=== PATIENT | female | born 1960 | race Caucasian/White ===

== ENCOUNTER → 2018-09-23 14:37 | Outpatient (CLI) | payer OTHER, SELFPAY ==
--- NOTE | 2018-09-23 14:39 | RAD_ITS ---
STUDY: X-RAY - RIGHT HAND REASON FOR EXAM: Female, 58 years old. Pain of the first digit TECHNIQUE: 3 view(s) of the hand. COMPARISON: None. FINDINGS: Normal radiocarpal articulation. Normal distal radioulnar joint. Normal visualized carpal bones. Normal carpal articulations Normal carpometacarpal articulation of the thumb. Normal second through fifth carpometacarpal joints. Normal metacarpi. Normal metacarpophalangeal joint of the thumb. Normal interphalangeal joint of the thumb. Normal proximal and distal phalanges of the thumb. Normal metacarpophalangeal joints of the second through fifth fingers. Normal proximal and distal interphalangeal joints of the second through fifth fingers. Normal phalanges of the second through fifth fingers. The soft tissue structures are unremarkable. RAD/Hand Min 3 Views IMPRESSION: Normal x-ray examination of the hand. Electronically Signed: Robbie Wolf MD at 18:44 EST , Service support ,
== END ==
PROVIDERS: Family Provider Student in an Organized Health Care Education/Training Program; PCP Student in an Organized Health Care Education/Training Program; Referring Provider Orthopaedic Surgery; Visit Provider Orthopaedic Surgery
DX: M79.644 Pain in right finger(s) (principal)
CPT/HCPCS: 73130

== ENCOUNTER 2018-10-08 23:46 | Emergency (ER) | payer OTHER, SELFPAY ==
[2018-10-08 23:47] VITALS: BP 139/86; PULSE 79; RESP 20; TEMP 36.7; O2SAT 100; BMI 23.1
--- NOTE | 2018-10-08 23:53 | ED.RN ---
CALLED FOR EKG PER RN REQUEST, PULLED OLD EKGS FOR
--- NOTE | 2018-10-09 | EKG12_ITS ---
Test Reason : PALPITATIONS Blood Pressure : / mmHG Vent. Rate : 077 BPM Atrial Rate : 077 BPM P-R Int : 138 ms QRS Dur : 088 ms QT Int : 406 ms P-R-T Axes : 079 073 045 degrees QTc Int : 459 ms Normal sinus rhythm Normal ECG Confirmed by MIGUEL TREJO, SOFIE ([id number]), social media editor SLIME ARMENTA ([id number]) on 10/13/2018 11:35:18 AM Referred By: BEBETO Confirmed By:SOFIE RIVERA MD
--- NOTE | 2018-10-09 00:25 | RAD_ITS ---
PT STATES SHE FELT LIKE HER HEART RATE WAS LOW AND THEN IT WAS RACING,HER LIPS WERE NUMB AND L ARM CRAMPING EXAM: XR Chest 2 Views: COMPARISON: None FINDINGS: EKG leads in place. Normal heart size. Bilateral hyperinflation and hyperlucency compatible with COPD. Left midlung calcified granuloma. No pneumothorax. The bony thorax appears intact. RAD/Chest PA and Lateral IMPRESSION: 1. No acute disease. 2. COPD and old granulomatous disease. at 0109 Reported and signed by: King Garcia MD Electronically Signed: King Garcia, at 1:07 EST Tel , Service support ,
[2018-10-09 00:32] LABS: Absolute Lymphocyte Count 2.56 X10^3/ul (0.83-4.51); Absolute Neutrophil Count 2.7 X10^3/uL (2.0-7.7); Basophil# 0.03 X10^3/uL; Basophil% 0.5 % (0-1); Eosinophil# 0.09 X10^3/uL; Eosinophils% 1.5 % (0-5); Hematocrit 39.4 % (37-47); Hemoglobin 13.2 g/dl (12.0-15.0); Lymphocyte # 2.56 X10^3/ul (4.0); Lymphocyte % 43.1 % (19-41); Mean Corp Hgb Conc 33.5 g/gl (32-36); Mean Corpuscular Hgb 31.3 pg (27.0-32.0); Mean Corpuscular Volume 93.4 fL (81-99); Mean Platelet Vol. 11.1 fl (6.2-12.0); Monocyte# 0.53 X10^3/uL; Monocyte% 8.9 % (0-10); Neutrophil # 2.72 X10^3/uL (2.7-7.7); Neutrophil % 45.8 % (47-70); Platelet Count 201 K/mm3 (150-450); RBC Distribution Width CV 12.7 % (11.6-14.6); RBC Distribution Width SD 42.3 fl (35.1-43.9); Red Blood Count 4.22 M/mm3 (4.2-5.4); White Blood Count 5.9 K/mm3 (4.4-11.0)
[2018-10-09 00:38] LABS: POSITIVE COUNT NO; POSITIVE DIFFERENTIAL NO; POSITIVE MORPHOLOGY NO
[2018-10-09 00:47] LABS: Anion Gap 5 (5-15); BUN 10 mg/dL (7-18); BUN/Creat Ratio 14.3 RATIO (10-20); Calcium,Total 8.4 mg/dL (8.5-10.1); Chloride 108 mmol/L (98-107); EST Glomerular Filtration Rate 92 mL/min (>60); Est Glom Filt Rate - Afr Amer 111 mL/min (>60); Estimated Creatinine Clearance 82.01 ml/min; Glucose 86 mg/dL (74-106); Potassium 3.9 mmol/L (3.5-5.1); Sodium Level 142 mmol/L (136-145); Thyroid Stim Hormone (TSH) 4.79 uIU/mL (0.358-3.74)
--- NOTE | 2018-10-09 01:08 | ED.VISSUMM ---
- ER Visit Summary Date of Service: 10/09/18 Chief Complaint: Palpitations and bilateral arm pain History of Present Illness: The patient is a 58 F who presents with palpitations and bilateral arm pain. Roughly an hour and a half before presentation while at rest she developed aching cramping pain in both of her arms. She then felt like her heart was racing and had palpitations. She began to feel anxious and developed numbness around her mouth. The symptoms have since improved although she does still complain of some mild cramping the left forearm and hand. There was no chest pain shortness of breath lightheadedness dizziness. She has a history of mitral valve prolapse no prior history of similar symptoms to this. She has no other medical history such as diabetes hypertension hyperlipidemia. She has not a smoker. Physical Examination: Afebrile vitals normal Moist mucous membranes Heart regular rate and rhythm Lungs are clear Abdomen soft Extremities nontender no edema normal sensation to light touch brisk capillary refill easily palpable symmetric 2+ radial pulses Test Results: EKG shows normal sinus rhythm at a rate of 77. CBC BMP unremarkable. Troponin negative. TSH mildly elevated at 4.79. Chest x-ray shows no acute findings. Emergency Department Course and Treatment: Patient underwent cardiac evaluation for possible atypical presentation of angina. This workup is negative. Her heart enzymes are negative her EKG is normal. Her heart score is 1, CESAR scoring is 0. On reevaluation she has no symptoms no complaints. She has had no dysrhythmia on cardiac monitoring here. I do believe she is safe for outpatient follow-up. She was instructed on specific signs and symptoms to monitor for and symptoms which should prompt return here to the emergency department. She is comfortable with this plan. All questions answered bedside. Patient discharged. Treatment Plan: [] Disposition: Discharge Impression: Bilateral arm pain, resolved Palpitations, resolved This note was generated with [employer] dictation software. It may contain incorrect words, spelling, and punctuation that were not noted in review of the chart prior to signing ED Disposition - Plan for ED Patient: Chief Complaint: Palpitations Referrals: Luke Arzola DO [Primary Care Provider] -
--- NOTE | 2018-10-09 01:17 | ED.DEP ---
ED Disposition - Plan for ED Patient: Chief Complaint: Palpitations Instructions: ED Palpitations Referrals: Luke Arzola DO [Primary Care Provider] -
[2018-10-09 01:26] VITALS: BP 108/63; PULSE 68; RESP 13; O2SAT 95
== END 2018-10-09 01:27 | disposition home or self-care (01) ==
LOC: ED 10-09 00:39
PROVIDERS: Emergency Provider Emergency Medicine; Family Provider Student in an Organized Health Care Education/Training Program; PCP Student in an Organized Health Care Education/Training Program
DX: R00.2 Palpitations (principal); M79.601 Pain in right arm; M79.602 Pain in left arm; I34.1 Nonrheumatic mitral (valve) prolapse
CPT/HCPCS: 71046; 80048; 84443; 84484; 85025; 93005; 99285; A4216

== ENCOUNTER → 2018-12-13 08:34 | Outpatient (CLI) | payer OTHER, SELFPAY ==
--- NOTE | 2018-12-13 08:35 | RAD_ITS ---
STUDY: X-RAY - RIGHT HAND, ATTENTION FIRST FINGER REASON FOR EXAM: Female, 58 years old. Intermittent pain in the proximal thumb. TECHNIQUE: 3 view(s) of the finger were obtained. COMPARISON: None. FINDINGS: Mild degenerative arthrosis of the carpometacarpal articulation. Normal metacarpal.. Normal metacarpophalangeal joint. Normal proximal phalanx. Normal distal phalanx. Normal interphalangeal joint. There is a 2 mm linear calcification overlying the lateral aspect of the interphalangeal joint, possibly representing ligamentous/joint capsule calcification. 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 Small calcification overlying the lateral aspect of the interphalangeal joint, possibly calcification of joint capsule. No demonstrated fracture, dislocation, or destructive osseous lesion. Electronically Signed: Dionicio Benson MD at 3:21 EST , Service support ,
--- OUTSIDE RECORDS SUMMARY | 2019-02-14 15:50 | XMS RPT_ITS ---
:1960 Author Organization OHIP Care Team Providers Name Role Phone LUKE BURRELL Referring Unavailable LUKE BURRELL Attending Unavailable MIRZA LOPEZ ([facility]) Referring Unavailable King Bello Attending Unavailable Luke Burrell Referring Unavailable King Bello Attending Unavailable King Bello Referring Unavailable Luke Burrell Primary Care Unavailable Ellen Marvin Attending Unavailable Luke Burrell Referring Unavailable Ellen Marvin Attending Unavailable Ellen Marvin Referring Unavailable Luke Burrell Primary Care Unavailable Luke Burrell Primary Care Unavailable Javed Winters Attending Unavailable PROBLEMS PROBLEMS DATE TYPE CONDITION / CODE ATTENDING STATUS SOURCE 12/13/2018 Unknown S62.009A - King Bello Active [place] Unspecified fracture [facility] [scaphoid] bone of Repository unspecified wrist, initial encounter for closed fracture / S62.009A(ICD-10) 12/13/2018 Unknown M18.11 - Unilateral King Bello Active Natali primary [facility] first carpometacarpal Repository joint, right hand / M18.11(ICD-10) 11/01/2018 Unknown M79.644 - Pain in [place], Active [place] right finger(s) / Ellen [facility] M79.644(ICD-10) Hospital Repository 11/01/2018 Unknown S62.034A - [place], Active Natali Nondisplaced fracture [facility] proximal third of Hospital navicular [scaphoid] Repository bone of right wrist, initial encounter for closed fracture / S62.034A(ICD-10) 01/21/2018 Active Encounter for NA Active [place] [facility] for malignant [place] neoplasm of breast / Repository Z12.31(ICD-10) 12/28/2017 Active Encounter for general Active [place] [facility] examination without [place] abnormal findings / Repository Z00.00(ICD-10) PROCEDURES PROCEDURES No Procedure Records FoundRESULTS RESULTS ORTHOPEDIC VISIT Observed: 12/13/2018 Status: F Source: PRAY REPORT 9:37 AM [facility] [address] [place] [address] OFFICE VISIT Date of Service: 12/13/18 MR#: [id number] Acct: [id number] Name: SHELLI SANCHEZ Rep #: [id number] : 1960 Provider: EWELINA Bello Age/Sex: 58/F [place] [facility] [place]: Signed Intake Vital Signs12/13/18 Body Mass Index (BMI) 23.1 Intake Visit Reasons: RIGHT WRIST Allergies codeine Allergy (Severe, Verified 10/08/18 23:49) Upset Stomach Medications NK 10/09/18 [History Confirmed 10/09/18] PFSH Social History Smoking Status: Never smoker alcohol intake: current alcohol intake frequency: holidays/special occasions only Alcohol type: wine, beer HPI RIGHT WRIST: Details: SHELLI SANCHEZ is a 58 year old F here today for Ortho Exam Right Wrist/Hand Skin/Wound: Yes Swelling (Minor generalized swelling of CMC), No Ecchymosis Contralateral Normal: Yes Right Wrist: Yes ROM-Extension 0-60, ROM-Flexion 0-80, ROM- Pronation 0-80 and ROM-Supination 0-90; no Snuffbox tenderness Sensation: Radial: I, Ulnar: I, Median: I WRIST: Today in the office patient has no acute abnormalities noted on inspection. She does have some minor generalized swelling of the CMC area comparing the left CMC. She has no bruising/ecchymosis, erythema or other skin changes. Patient does have full active range of motion without any pain or discomfort. Today in the office she does appear to have normal strength comparable to the left thumb. There is no evident instability of the thumb or the wrist. She does not really have any evident reproducible pain with shucking/grinding of the CMC today. Left Wrist/Hand Skin/Wound: Yes Swelling (Minor generalized swelling of CMC), No Ecchymosis Assessment AND Plan Problems 1. Injury of right thumb, subsequent encounter S69.91XD 2. Closed nondisplaced fracture of scaphoid of right wrist with routine healing, unspecified portion of scaphoid, subsequent encounter S62.001D Plan At this time today in the office patient continues to have right thumb pain. Her thumb pain is not easily reproducible with specific movements. She states there are certain things she is able to do fine but then will have pains with some other movement. It is not the same movement every time though. Today in the office patient does appear to have localized tenderness of the CMC joint. She does have some generalized swelling of the area compared to the left CMC. She has normal active range of motion and no pains today with movements. There are no reproducible pains with resisted motion today either. She does not have any evident scaphoid/snuffbox tenderness today. At this point with 3 months of pain in the right thumb localized to the CMC region, have to be suspicious of possible subluxation with ligamentous damage and/or CMC arthritis. At this time she has been wearing the brace doing anti-inflammatories and ice without any improvement and therefore need to get an MRI of the wrist to include the CMC joint to look for ligamentous damage, scaphoid injury, and to evaluate the CMC joint a little better in terms of arthritis. Patient is to follow-up in the office to go over her MRI at that time. She can continue with conservative measures of ice, anti-inflammatories and wearing the brace as needed. All questions were answered at this time. This note was generated with Eltechsation software. It may contain incorrect words, spelling, and punctuation that were not noted in checking the note before signing. Orders Orders: Coding Level of Care Code Off vis,est,level 3 Diagnoses Injury of right thumb, subsequent encounter S69.91XD Encounter type: subsequent encounter Closed nondisplaced fracture of scaphoid of right wrist with routine healing, unspecified portion of scaphoid, subsequent encounter S62.001D Encounter type: subsequent encounter Scaphoid bone location: unspecified portion of scaphoid Fracture alignment: nondisplaced Laterality: right Fracture healing: with routine healing 12/13/18 0937 <Electronically signed by King THEODORE> Date King THEODORE Cosigner Signature: Date (if applicable) CC: FINGER(S) MIN 2 VIEWS Observed: 12/13/2018 Status: F Source: [place]AY 8:36 AM [facility] Imaging Services [address] [place] [address] Finger(s) Min 2 Views MR#: [id number] Acct: [id number] Name: SHELLI SANCHEZ Rep #: [id number] : 1960 F 58 From: Dionicio Benson MD PCP: Luke Juan DO Status: REG CLI Study: Finger(s) Min 2 Views Date of Exam: 12/13/18 Exam# [id number] Ordering Dr: King Bello STUDY: X-RAY - RIGHT HAND, ATTENTION FIRST FINGER REASON FOR EXAM: Female, 58 years old. Intermittent pain in the proximal thumb. TECHNIQUE: 3 view(s) of the finger were obtained. COMPARISON: None. FINDINGS: Mild degenerative arthrosis of the carpometacarpal articulation. Normal metacarpal.. Normal metacarpophalangeal joint. Normal proximal phalanx. Normal distal phalanx. Normal interphalangeal joint. There is a 2 mm linear calcification overlying the lateral aspect of the interphalangeal joint, possibly representing ligamentous/joint capsule calcification. 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 Small calcification overlying the lateral aspect of the interphalangeal joint, possibly calcification of joint capsule. No demonstrated fracture, dislocation, or destructive osseous lesion. Electronically Signed: Dionicio Benson MD at 3:21 EST , Service support , CC: EWELINA Bello; Luke Juan DO Computer Art Instructor: Signed 12 LEAD ELECTROCARDIOGRAM Observed: 10/22/2018 Status: F Source: PRAY 9:12 AM [facility] [place] [facility] Cardiovascular Services [address] [place] [address] 12 Lead EKG 10/09/18 0003 MR#: [id number] Acct: [id number] Name: SHELLI SANCHEZ Rep #: [id number] : 1960 58 From: Griffin Nolasco MD Attending Dr: Status: DEP ER Ordering Dr: Javed Winters MD Date: 10/09/18 Location: ED Sex: F C Admitted: Test Reason : PALPITATIONS Blood Pressure : / mmHG Vent. Rate : 077 BPM Atrial Rate : 077 BPM P-R Int : 138 ms QRS Dur : 088 ms QT Int : 406 ms P-R-T Axes : 079 073 045 degrees QTc Int : 459 ms Normal sinus rhythm Normal ECG Confirmed by GRIFFIN NOLASCO MD ([id number]), editorial specialist SLIME ARMENTA ([id number]) on 10/13/2018 11:35:18 AM Referred By: BEBETO Confirmed By:GRIFFIN NOLASCO MD 10/13/18 1135 Date Griffin Nolasco MD CC: Luke Juan DO; Javed Winters MD Signed EMERGENCY DEPARTMENT Observed: 10/09/2018 Status: F Source: PRAY SUMMARY 1:17 AM [facility] [place] [facility] Medical Records Department [address] [place] [address] Emergency Department Summary 10/09/18 0108 MR#: [id number] Acct: [id number] Name: SHELLI SANCHEZ Rep #: [id number] : 1960 58 From: Javed Winters MD PCP: Luke Juan DO Status: REG ER - ER Visit Summary Date of Service: 10/09/18 Chief Complaint: Palpitations and bilateral arm pain History of Present Illness: The patient is a 58 F who presents with palpitations and bilateral arm pain. Roughly an hour and a half before presentation while at rest she developed aching cramping pain in both of her arms. She then felt like her heart was racing and had palpitations. She began to feel anxious and developed numbness around her mouth. The symptoms have since improved although she does still complain of some mild cramping the left forearm and hand. There was no chest pain shortness of breath lightheadedness dizziness. She has a history of mitral valve prolapse no prior history of similar symptoms to this. She has no other medical history such as diabetes hypertension hyperlipidemia. She has not a smoker. Physical Examination: Afebrile vitals normal Moist mucous membranes Heart regular rate and rhythm Lungs are clear Abdomen soft Extremities nontender no edema normal sensation to light touch brisk capillary refill easily palpable symmetric 2+ radial pulses Test Results: EKG shows normal sinus rhythm at a rate of 77. CBC BMP unremarkable. Troponin negative. TSH mildly elevated at 4.79. Chest x-ray shows no acute findings. Emergency Department Course and Treatment: Patient underwent cardiac evaluation for possible atypical presentation of angina. This workup is negative. Her heart enzymes are negative her EKG is normal. Her heart score is 1, CESAR scoring is 0. On reevaluation she has no symptoms no complaints. She has had no dysrhythmia on cardiac monitoring here. I do believe she is safe for outpatient follow-up. She was instructed on specific signs and symptoms to monitor for and symptoms which should prompt return here to the emergency department. She is comfortable with this plan. All questions answered bedside. Patient discharged. Treatment Plan: [] Disposition: Discharge Impression: Bilateral arm pain, resolved Palpitations, resolved This note was generated with Immy dictation software. It may contain incorrect words, spelling, and punctuation that were not noted in review of the chart prior to signing ED Disposition - Plan for ED Patient: Chief Complaint: Palpitations Referrals: Luke Burrell DO [Primary Care Provider] - What to do if you have Problems For any increased pain, shortness of breath, bleeding, nausea or vomiting, chest pain, or any unexpected problems, contact your Primary Care Provider. Call [email or web address] ([phone]) or report to the closest Emergency Room. Call 911 if necessary. 10/09/18116 <Electronically signed by Javed Winters MD> Date Javed Winters MD Cosigner Signature (If Indicated): Date CC: Luke Juan DO DISCHARGE INSTRUCTION Observed: 10/09/2018 Status: Source: PRAY 1:17 AM [facility] [place] Medical Records Department [address] [place] [address] Discharge Instruction 10/09/18116 MR#: [id number] Acct: [id number] Name: SHELLI SANCHEZ Rep #: [id number] : 1960 58 From: Javed Winters MD PCP: Luke Juan DO Status: [facility] ER ED Disposition - Plan for ED Patient: Chief Complaint: Palpitations Instructions: ED Palpitations Referrals: Luke Burrell DO [Primary Care Provider] - What to do if you have Problems For any increased pain, shortness of breath, bleeding, nausea or vomiting, chest pain, or any unexpected problems, contact your Primary Care Provider. Call [facility] ([phone]) or report to the closest Emergency Room. Call 911 if necessary. 10/09/18 0117 <Electronically signed by Javed Winters MD> Date Javed Winters MD Cosigner Signature (If Indicated): Date CC: Luke Juan, DO CBC W/DIFF, AUTOMATED Collected: 10/09/2018 Status: F Source: NATALI 12:05 AM [facility] [place] [facility] TYPE CODE TESTS RESULT OUT OF RANGE REFERENCE UNITS LAB L100.1000 4.4-11.0 K/mm3 Normal WBC 5.9 LAB L100.1200 4.2-5.4 M/mm3 Normal RBC 4.22 LAB L100.1300 12.0-15.0 g/dl Normal HGB 13.2 LAB L100.1400 37-47 % Normal HCT 39.4 LAB L100.1500 81-99 fL Normal MCV 93.4 LAB L100.1600 27.0-32.0 pg Normal MCH 31.3 LAB L100.1700 32-36 g/gl Normal MCHC 33.5 LAB L100.1810 11.6-14.6 % Normal RDW CV 12.7 LAB L100.1820 35.1-43.9 fl Normal RDW SD 42.3 LAB L100.1900 150-450 K/mm3 Normal PLT 201 LAB L100.2000 6.2-12.0 fl Normal MPV 11.1 LAB L100.2100 47-70 % Low NEUT% 45.8 LAB L100.2200 19-41 % High LY% 43.1 LAB L100.2300 0-10 % Normal MONO% 8.9 LAB L100.2400 0-5 % Normal EO% 1.5 LAB L100.2500 0-1 % Normal BASO% 0.5 LAB L100.2550 0.0-0.9 % Normal IM GRAN % 0.200 Result Comment: IG% - Immature Granulocytes (promyelocytes, myelocytes and metamyelocytes) > 1% indicates that a LEFT SHIFT is Present. LAB L100.2620 2.0-7.7 X10 3/uL Normal Absolute Neut 2.7 LAB L100.2720 0.83-4.51 X10 3/ul Normal Absolute Lymph 2.56 Performed By: #### L100.0100 #### [facility] [address] [facility] [place], [place], [id number] BASIC METABOLIC Collected: 10/09/2018 Status: F Source: PRAY PROFILE ([facility]) 12:05 AM [facility] [place] [facility] TYPE CODE TESTS RESULT OUT OF RANGE REFERENCE UNITS LAB L501.0100 74-106 mg/dL Normal GLU 86 Result Comment: Please note revised GLUCOSE reference range effective 2017. LAB L501.1000 7-18 mg/dL Normal BUN 10 LAB L501.1100 0.55-1.02 mg/dL Normal CREAT,SERUM 0.70 Result Comment: The validity of the calculated GFR AND GFRAA in patients over 70 years has not been determined. Clinical correlation is essential. LAB L501.1110 >60 mL/min Normal EST GFR 92 Result Comment: Non- GFR Calc LAB L501.1115 >60 mL/min Normal EST GFR - AA 111 Result Comment: GFR Calc LAB L501.1255 ml/min Normal Estimated CRCL 82.01 LAB L501.1300 10-20 RATIO Normal BUN/CRE 14.3 LAB L501.2200 8.5-10 mg/dL Low .1 CA 8.4 LAB L501.5300 136-14 mmol/L Normal 5 NA 142 LAB L501.5600 3.5-5. mmol/L Normal 1 K 3.9 LAB L501.5900 98-107 mmol/L High CL 108 LAB L501.6100 21.0-3 mmol/L Normal 2.0 CO2 29.0 LAB L501.6200 5-15 Normal GAP 5 Performed By: #### L500.2500, L501.4010, L501.9520 #### [facility] [address] [place] [place], [address] TROPONIN-I Collected: 10/09/2018 Status: F Source: PRAY 12:05 AM [facility] [place] [facility] TYPE CODE TESTS RESULT OUT OF RANGE REFERENCE UNITS LAB L501.4010 <0.045 ng/mL Normal < 0.015 TROPONIN-I Result Comment: TROPONIN-I EXPECTED VALUES <0.045 Negative 0.045 - 0.590 Consistent with Cardiac Damage > OR = 0.600 Critical Value Not every elevated troponin is indicative of OR. These values should be used with clinical judgement in examining the patient's clinical picture for diagnosis. To establish a diagnosis of OR versus myocardial injury, there must be a demonstrated rise and/or fall in the troponin values, in addition to ischemic symptoms, EKG changes, new regional wall motion abnormality, and/or angiographical evidence. PLEASE NOTE: REFERENCE RANGES EDITED 18 Performed By: #### L500.2500, L501.4010, L501.9520 #### [facility] [address] [facility] [place], [place], [address] THYROID STIM HORMONE Collected: 10/09/2018 Status: F Source: PRAY ([facility]) 12:05 AM [facility] [place] [facility] TYPE CODE TESTS RESULT OUT OF RANGE REFERENCE UNITS LAB L501.9520 0.358-3.74 uIU/mL High TSH 4.79 Performed By: #### L500.2500, L501.4010, L501.9520 #### [facility] [address] [place], [address] CHEST PA AND LATERAL Observed: 10/09/2018 Status: F Source: PRAY 12:03 AM [facility] [place] Imaging Services [address] [place] [address] Chest PA and Lateral MR#: [id number] Acct: [id number] Name: SHELLI SANCHEZ Rep #: [id number] : 1960 F 58 From: King Garcia MD PCP: Luke Juan DO Status: REG ER Study: Chest PA and Lateral Date of Exam: 10/09/18 Exam# [id number] Ordering Dr: Javed Winters MD PT STATES SHE FELT LIKE HER HEART RATE WAS LOW AND THEN IT WAS RACING,HER LIPS WERE NUMB AND L ARM CRAMPING EXAM: XR Chest 2 Views: COMPARISON: None FINDINGS: EKG leads in place. Normal heart size. Bilateral hyperinflation and hyperlucency compatible with COPD. Left midlung calcified granuloma. No pneumothorax. The bony thorax appears intact. RAD/Chest PA and Lateral IMPRESSION: 1. No acute disease. 2. COPD and old granulomatous disease. at 0109 Reported and signed by: King Garcia MD Electronically Signed: King Garcia, at 1:07 EST Tel , Service support , CC: Luke Juan DO; Javed Winters MD Computer Art Instructor: Signed ORTHOPEDIC VISIT Observed: 09/23/2018 Status: F Source: PRAY REPORT 3:45 PM [facility] [place] Orthopa[facility] Sports Medicine [address] [place] [address] OFFICE VISIT Date of Service: 09/23/18 MR#: [id number] Acct: [id number] Name: SHELLI SANCHEZ Rep #: [id number] : 1960 Provider: Ellen Marvin DO Age/Sex: 57/F [place] [facility] [place]: Signed Intake Vital Signs09/23/18 Height 5 ft 7 in Intake Visit Reasons: right thumb Bucket Operator Required: No Accompanied by: None Is patient in pain?: Yes (thumb right hand) Pain scale (1- 10): 1 Allergies codeine Allergy (Severe, Verified 09/23/18 14:21) Upset Stomach PFSH Social History Smoking Status: Never smoker alcohol intake: current alcohol intake frequency: holidays/special occasions only Alcohol type: wine, beer HPI right thumb: Details: SHELLI SANCHEZ is a 57 year old F here today for thumb pain on her right hand. Patient states in July she woke up with her thumb being stiff and swollen. Patient does not recall a particular injury. Patient rates her pain as a 1/10 and describes as a dull ache. Patient states her pain does not radiate. Patient states that using her thumb at a certain angle seems to aggravate the pain, such as grabbing a pair of scissors or opening a jar. Patient states that she notices she is changing the way she uses her hand by doing more grabbing of objects with her finger instead of using her thumb. Patient states that not using her thumb seems to help relieve the pain. Denies popping or clicking. States she does not notice swelling since she woke up with it swollen. Has not had xrays, MRI, injections, or therapy. Ortho Exam Right Wrist/Hand Skin/Wound: Yes CDI Contralateral Normal: Yes A1 marcel trigger: No Right Wrist: Yes ROM-Extension 0-60, ROM-Flexion 0-80, ROM- Pronation 0-80 and ROM-Supination 0-90; no Annia's Test, Snuffbox tenderness, Durken's Test or Skinner Test Motor: EPL: 5, FDP-2: 5, 1st Dorsal Interosseous: 5, APB: 5 Sensation: Radial: I, Ulnar: I, Median: I WRIST: cmc grind, ttp prox pole scaphoid, no thenar atrophy Assessment AND Plan 1. Closed nondisplaced fracture of proximal third of scaphoid bone of right wrist, initial encounter S62.084A Plan Personally reviewed the patient's medical history, medications, surgeries and recent exams if available. X-rays were reviewed. There is no obvious fracture, dislocation, or lucency noted. Educated on the anatomy of the thumb and hand and innervation of the nerves. Explained that the head of the scaphoid is tender with no signs of changes on xray and cmc pain. Reviewed the risk of injury to the scaphoid and the lack of good blood supply to the bone. Her treatment options are bracing, OT with HEP, oral nsaids or order an MRI for eval. If the conservative care of OT and bracing fails we will order an MRI. Follow up in 2wks or sooner if pain, swelling, numbness or associated symptoms, or concerns develop. All questions answered. Patient in agreement of plan. Plan Detail Other Orders Orders: Coding Level of Care Code Off vis,new,level 3 Diagnoses Closed nondisplaced fracture of proximal third of scaphoid bone of right wrist, initial encounter S62.810P Encounter type: initial encounter Fracture alignment: nondisplaced Fracture type: closed Laterality: right Scaphoid bone location: proximal third 09/23/18 1545 <Electronically signed by Ellen Marvin DO> Date Ellen Marvin DO Cosigner Signature: Date (if applicable) CC: HAND MIN 3 VIEWS Observed: 09/23/2018 Status: F Source: PRAY 2:39 PM [facility] [place] [facility] Imaging Services [address] [place] [address] Hand Min 3 Views MR#: [id number] Acct: [id number] Name: SHELLI SANCHEZ Rep #: [id number] : 1960 F 57 From: Robbie Wolf MD PCP: Luke Juan DO Status: REG CLI Study: Hand Min 3 Views Date of Exam: 09/23/18 Exam# [id number] Ordering Dr: Ellen Marvin DO STUDY: X-RAY - RIGHT HAND REASON FOR EXAM: Female, 58 years old. Pain of the first digit TECHNIQUE: 3 view(s) of the hand. COMPARISON: None. FINDINGS: Normal radiocarpal articulation. Normal distal radioulnar joint. Normal visualized carpal bones. Normal carpal articulations Normal carpometacarpal articulation of the thumb. Normal second through fifth carpometacarpal joints. Normal metacarpi. Normal metacarpophalangeal joint of the thumb. Normal interphalangeal joint of the thumb. Normal proximal and distal phalanges of the thumb. Normal metacarpophalangeal joints of the second through fifth fingers. Normal proximal and distal interphalangeal joints of the second through fifth fingers. Normal phalanges of the second through fifth fingers. The soft tissue structures are unremarkable. RAD/Hand Min 3 Views IMPRESSION: Normal x-ray examination of the hand. Electronically Signed: Robbie Wolf MD at 18:44 EST , Service support , CC: Ellen Marvin DO; Luke Juan DO Computer Art Instructor: Signed PROGRESS Observed: 01/21/2018 Status: COMPLETED Source: [place] 4:22 PM [facility] RE[facility] HNO ID: [id number] Author: Saranya Mauricio Service: (none) Author Type: (none) Type: Progress Notes Filed: 01/21/2018 4:22 PM Note Text: Radiology Service Progress Note PATIENT NAME: Shelli Sanchez DATE OF SERVICE: January 21, 2018 TIME: 4:22 PM PATIENT IDENTITY VERIFICATION COMPLETED USING TWO (2) METHODS: Patient confirmed name verbally and Date of . PATIENT GENDER DATA: Female. status: : No status: NO. PATIENT RELEVANT IMPLANT DATA REVIEWED: Not Applicable RADIOLOGY DEPARTMENT: [facility] DATA: Not applicable SIGNED BY: Saranya Mauricio January 21, 2018 4:22 PM [facility] Observed: 01/21/2018 Status: COMPLETED Source: [place] 4:10 PM [facility] RE[facility] HNO ID: [id number] Author: Mammography Coordinator Service: (none) Author Type: Physician Type: Letter Filed: 01/25/2018 11:32 PM Note Text: January 21, 2018 PID: [id number] Shelli Sanchez [address] [place] [address] Dear Ms. Sanchez, We are pleased to inform you that the results of your recent breast imaging exam on 01/21/2018 are normal. Your mammogram demonstrates that you have dense breast tissue, which could hide abnormalities. Dense breast tissue, in and of itself, is a relatively common condition. Therefore, this information is not provided to cause undue concern; rather, it is to raise your awareness and promote discussion with your health care provider regarding the presence of dense breast tissue in addition to other risk factors. Early detection of cancer is very important. We also understand recommendations regarding breast cancer screening are controversial. Please discuss with your primary care provider which strategy is best for you and whether a mammogram is right for you. Your imaging studies and report will be kept on file at [facility] as part of your permanent medical record and are available for your continuing care. Thank you for allowing us to help in meeting your health care needs. Sincerely, Dr. Villagran Interpreting Radiologist [facility] (Normal over 40) [facility] SCREENING Observed: 01/21/2018 Status: F Source: [facility] [place] 3:36 PM [facility] REPOSITORY * * *Final Report* * * DATE OF EXAM: Jan 21 2018 3:36PM [id number] [id number] - [facility] SCREENING / PROCEDURE REASON: Encounter for screening mammogram for malignant neoplasm of breast * * * * Physician Interpretation * * * * RESULT: #[id number] - [facility] SCREENING BILATERAL DIGITAL SCREENING MAMMOGRAM WITH CAD: 01/21/2018 HISTORY: Encounter For Screening Mammogram For Malignant Neoplasm Of Breast\ Screening Mammogram - patient reports NO breast symptoms /priors available for comparison. RESULT: TECHNIQUE: The study was acquired using full field digital technology and interpreted from soft copy. Current study was also evaluated with a Computer Aided Detection (CAD). Comparison is made to exams dated: 2016 mammogram, 06/18/2015 mammogram, and 08/31/2013 mammogram - [facility]. The tissue of both breasts is heterogeneously dense. This may lower the sensitivity of mammography. There is a biopsy clip in the right breast. No significant masses, calcifications, or other findings are seen in either breast. There has been no significant interval change. IMPRESSION: NEGATIVE There is no mammographic evidence of malignancy.A 1 year screening mammogram is recommended. Shelli Villagran M.D., ch/theron:01/21/2018 16:10:01 Family Development Specialist: Saranya MAURICIO(Andree)(Jamal), [facility] letter sent: Normal over 40 Mammogram BI-RADS: 1 Negative Computer Art Instructor: Theron Transcribe Date/Time: Jan 21 2018 3:37P Dictated by: SHELLI VILLAGRAN MD This examination was interpreted and the report reviewed and electronically signed by: SHELLI VILLAGRAN MD on Jan 21 2018 4:10PM EST [id number] PROGRESS Observed: 12/30/2017 Status: COMPLETED Source: [facility] 4:42 PM [facility] REPOSITORY HNO ID: [id number] Author: Luke Burrell Service: (none) Author Type: Physician Type: Progress Notes Filed: 01/01/2018 7:24 AM Note Text: CC: Shelli Sanchez is a 57 year old female who presents to the office for physical HPI: Overall feeling well, is going to be traveling to [facility] with dtr Daina to visit son John who is living abroad for school for the last 6 months HM: need for mammogram PAST MEDICAL HISTORY Diagnosis Date - Basal cell carcinoma 12/2011 right eye, [facility] [place] - Mitral valve disorders(424.0) MVP, arrythmia - Snoring PAST SURGICAL HISTORY Procedure Laterality Date - COLONOSCOP W/ OR W/O BRSH SPEC 07/16/15 Colonoscopy - EXTRACTION ERUPTED TOOTH/EXR 2012 wisdom tooth - PAST SURGICAL HISTORY OF 07/29 benign right breast biopsy - PAST SURGICAL HISTORY OF 1982 cyst removed from left breast - PAST SURGICAL HISTORY OF 12/2011 basil cell removed under right eye Social History: Social History Substance Use Topics - Smoking status: Never Smoker - Smokeless tobacco: Never Used - Alcohol use Yes Comment: rare FAMILY HISTORY Problem Relation Age of Onset - Allergies Mother - Hypertension Mother - glaucoma [OTHER] Mother - Heart Father atrial fib 79 from compolications of pneumoniva - Glaucoma Father - Allergies Maternal Grandfather - Seizures Sister fixed after surgical intervention, now resolved Current Outpatient prescriptions: ciprofloxacin HCl (CIPRO) 500 mg tablet Take 1 tablet by mouth twice daily for 10 days. Allergies: ALLERGIES Allergen Reactions - Seasonal Allergies Other: See Comments Runny nose - Codeine [Other] ROS: See HPI PE: 12/30/17 1541 BP: 110/60 Pulse: 76 Resp: 16 Temp: 36.7 ?C (98 ?F) TempSrc: Right Tympanic Weight: 64.4 kg (142 lb) Height: 168.9 cm (5' 6.5) Gen: AANDO, NAD, non-toxic appearing, Pleasant, cooperative HEENT: NT/AC, PERRLA, EOMs intact b/l, wearing glasses, nares clear and patent b/l, pharynx without erythema, exudate or lesions. Uvula midline. MMM, EACs without erythema or debris. TMs pearly fam with intact landmarks b/l. Neck: supple, No cervical LAD, no thyromegaly, no carotid bruits CV: RRR, normal S1 and S2, no murmurs, no gallops, no rubs, Pulses 2+ and symmetric in UE and LE b/l Lungs: normal respiratory effort, CTA b/l, no wheezing or rhonchi or rales Abd: soft, NT, ND, +BS, no hepatosplenomegaly MS: FROM all 4 extremities Neuro: CN II-XII intact b/l, strength 5/5 b/l UE and LE, DTRs 2/4 UE and LE, sensation intact. Skin: warm, dry, intact, No rashes or lesions on exposed skin. ASSESSMENT/PLAN: 1. Well adult exam - ICD9: V70.0, ICD10: Z00.00 (primary diagnosis) - Encouraged monthly Breast Self Exam - Recommended regular aerobic exercise. - Follow up for annual exam in one year. - HEPATITIS A VACCINE ADULT IM - TDAP VACCINE AGE 7+ IM 2. Travel advice encounter - ICD9: V65.49, ICD10: Z71.89 - CIPROFLOXACIN 500 MG TABLET Luke Burrell DO To ER if develops chest pain, shortness of breath, or severe worsening of symptoms. Discussed risks, benefits, alternatives, and potential side effects of medications. Patient expressed understanding and agreed with the plan. Luke Burrell DO [address] [place] [address] CBC Collected: 12/28/2017 Status: F Source: [facility] 8:54 AM [facility] REPOSITORY TYPE CODE TESTS RESULT OUT OF REFERENCE UNITS RANGE LAB WBC 3.70-11.00 k/uL WBC 5.32 LAB RBC 3.90-5.20 m/uL RBC 4.45 LAB HGB 11.5-15.5 g/dL Hemoglobin 13.9 LAB HCT 36.0-46.0 % Hematocrit 43.1 LAB MCV 80.0-100.0 fL MCV 96.9 LAB MCH 26.0-34.0 pG MCH 31.2 LAB MCHC 30.5-36.0 g/dL MCHC 32.3 LAB RDWCV 11.5-15.0 % RDW-CV 12.5 LAB PLTCT 150-400 k/uL Platelet Count 190 LAB MPV 9.0-12.7 fL MPV 11.3 LAB ABSNUC <0.01 k/uL Absolute nRBC <0.01 Performed By: #### CBC, CMP, LIPB, TSH #### [facility] [address] [place], [place] [address] COMP METABOLIC PANEL Collected: 12/28/2017 Status: F Source: [facility] [place] 8:54 AM [facility] REPOSITORY TYPE CODE TESTS RESULT OUT OF REFERENCE UNITS RANGE LAB TP 6.3-8.0 g/dL Protein, Total 7.1 LAB ALB 3.9-4.9 g/dL Albumin 4.4 LAB CA 8.5-10.2 mg/dL Calcium, Total 9.0 LAB TBIL 0.2-1.3 mg/dL Bilirubin, Total 1.1 LAB ALKP 32-117 U/L Alkaline Phosphatase 66 LAB AST 13-35 U/L AST 16 LAB GLU 74-99 mg/dL Glucose 79 Result Comment: The [place] Diabetes Association (ADA) provides guidance for cutoff values for fasting glucose and random glucose. The ADA defines fasting as no caloric intake for at least 8 hours. Fas ting plasma glucose results between 100 to 125 mg/dL indicate increased risk for diabetes (prediabetes). Fasting plasma glucose results greater than or equal to 126 mg/dL meet the criteria for diagnosis of diabetes. In the absence of unequivocal hyperglycemia, results should be confirmed by repeat testing. In a patient with classic symptoms of hyperglycemia or hyperglycemic crisis, random plasma glucose results greater than or equal to 200 mg/dL meet the criteria for diagnosis of diabetes. Reference: Standards of Medical Care in Diabetes 2016, [place] Diabetes Association. Diabetes Care. 2016.39(Suppl 1). LAB BUN 7-21 mg/dL BUN 14 LAB CRET 0.58-0.96 mg/dL Creatinine 0.73 LAB NA 136-144 mmol/L Sodium 144 LAB K 3.7-5.1 mmol/L Potassium 3.9 LAB CL 97-105 mmol/L Chloride 103 LAB CO2 22-30 mmol/L CO2 28 LAB AGAP 9-18 mmol/L Anion Gap 13 LAB ALT 7-38 U/L ALT 10 LAB GFRAA eGFR- Amer. >60 LAB GFRNAA . eGFR-All Other Races >60 Result Comment: eGFR (Estimated GFR) Units of measure: mL/min/1.73 meters squared eGFR is derived from the reexpressed MDRD Study equation using the following parameters: serum creatinine, age, gender and race. The creatinine assay has been calibrated to be traceable to IDW[place]. An eGFR <60 mL/min/1.73m2 for >3 months is consistent with chronic kidney disease. Refer to KDOQI guidelines for clinical interpretation. In patients with unstable renal function, e.g. those with acute kidney injury, the eGFR may not accurately reflect actual GFR. Performed By: #### CBC, CMP, LIPB, TSH #### [facility] [address] [place] [address] LIPID PANEL, BASIC Collected: 12/28/2017 Status: F Source: [facility] [place] 8:54 AM [facility] REPOSITORY TYPE CODE TESTS RESULT OUT OF REFERENCE UNITS RANGE LAB CHOL <200 mg/dL Cholesterol 191 Result Comment: <200 mg/dL, Desirable 200-239 mg/dL, Borderline high >239 mg/dL, High LAB TRIGLY <150 mg/dL Triglyceride 64 Result Comment: <150 mg/dL, Normal 150-199 mg/dL, Borderline high 200-499 mg/dL, High >499 mg/dL, Very high LAB HDL >39 mg/dL HDL-Cholesterol 90 Result Comment: 40-59 mg/dL, Acceptable >59 mg/dL, High: Negative risk factor for coronary heart disease <40 mg/dL, Low: Positive risk factor for coronary heart disease LAB LDL <100 mg/dL LDL-Cholesterol 88 Result Comment: <100 mg/dL, Optimal 100-129 mg/dL, Near optimal/above optimal 130-159 mg/dL, Borderline high 160-189 mg/dL, High >189 mg/dL, Very high Secondary prevention optimal LDL Cholesterol levels are recommended to be < 70 mg/dL LAB NONHDL <130 mg/dL Non HDL Cholesterol 101 Result Comment: <130 mg/dL, Optimal 130-159 mg/dL, Near optimal/above optimal 160-189 mg/dL, Borderline high 190-219 mg/dL, High >219 mg/dL, Very high Secondary prevention optimal non HDL Cholesterol levels are recommended to be < 100 mg/dL LAB FT hrs Fasting Time 12 LAB VLDL <30 mg/dL VLDL Cholesterol 13 LAB TCHDL <5.10 TC:HDL Ratio 2.12 LAB LDLHDL <2.54 LDL:HDL Ratio 0.98 Result Comment: Reference: 1. National Cholesterol Education Program ATP III Guideline At-A-Glance Quick Desk Reference: National Heart, Lung, and Blood [place]. National Institutes of Health. 2001: NIH Publication No. 01-3305. 2. An International Atherosclerosis Society position paper: global recommendations for the management of dyslipidemia: executive summary, Atherosclerosis. 2014: 232(2):410-413. Performed By: #### CBC, CMP, LIPB, TSH #### [facility] [address] [place], [place] [address] TSH Collected: 12/28/2017 Status: F Source: [facility] [place] 8:54 AM [facility] REPOSITORY TYPE CODE TESTS RESULT OUT OF RANGE REFERENCE UNITS LAB TSH 0.400-5.500 uU/mL TSH 1.500 Performed By: #### CBC, CMP, LIPB, TSH #### [facility] [address] [place], [place] [address] ALLERGIES ALLERGIES DATE TYPE / CODE NAME / CODE REACTION SEVERITY SOURCE 10/08/2018 Drug codeine/[id number] Upset Stomach [place] Allergy/[id number](S 550(RXNORM) [facility] Repository 05/04/2012 Environ/[id number](S SEASONAL OTHER: SEE C [facility]) ALLERGIES [facility] Repository 07/15/2006 Miscellaneous OTHER [place] Allergy/[id number]([facility]) [place] Repository ENCOUNTERS ENCOUNTERS ADMIT/DISCHARGE ACCOUNT ADMITTING ENCOUNTER LOCATION SOURCE NUMBER CLASS 12/13/2018 [id number] Ambulatory [facility] ing:HPRAD Repository 12/13/2018/12/13/19 [id number] Ambulatory BMSBuilding:B [place] 19 MS.SMO [facility] [place] 10/08/2018/10/09/20 [id number] Emergency [address] ing:ED Repository 09/23/2018 [id number] Ambulatory [facility] ing:HPRAD Repository 09/23/2018/09/23/20 [id number] Ambulatory BMSBuilding:B [place] 18 MS[facility] Repository 01/21/2018/01/22/[id number] Repository 12/30/2017/01/01/[id number] Repository 12/28/2017/12/28/[id number] Repository PAYERS PAYERS ENCOUNTER GUARANTOR PAYER SUBSCRIBER SOURCE 12/13/2018 SHELLI C Primary SHELLI C [place] [id number] Insurance:MEDICAL GORDONDOB: [facility] [id number] Number: Repository [address]Kym: 330 [id number] [phone] (HP) Date:[id number] [address] [address]DC: 12/13/2018 Secondary NOT GIVENUNK [place] Insurance:SELF PAY [facility] Number: Effective Repository Date:2018-12-13 12/13/2018 SHELLI C Primary SHELLI C [place] [id number] Insurance:MEDICAL GORDONDOB: [facility] [id number], [place] Number: Repository [id number]: 330 [id number] [phone] () Date:[id number] [address]QM: 12/13/2018 Secondary NOT GIVENUNK [place] Insurance:SELF PAY [facility] Number: Effective Repository Date:2018-12-10 10/08/2018 SHELLI C Primary SHELLI C [place] [id number] Insurance:MEDICAL GORDONDOB: [facility] [id number] Number: Repository [id number]: 330 [id number] [phone] (HP) Date:[id number] [address] [address]YE: 10/08/2018 Secondary NOT GIVENUNK [place] Insurance:SELF PAY [facility] Number: Effective Repository Date:2018-10-08 09/23/2018 [place] Primary SHELLI [place] [id number] Insurance:MEDICAL CYPRESSDOB: [facility] [id number] Number: Repository [id number]: 330 [id number] [phone] () Date:[id number] [address] [address]JK: 09/23/2018 Secondary NOT GIVENUNK [place] Insurance:SELF PAY [facility] Number: Effective Repository Date:2018-09-23 09/23/2018 SHELLI Yoder Primary SHELLI [place] [id number] Insurance:MEDICAL CYPRESSDOB: [facility] [id number] Number: Repository [id number]: 330 [id number] [phone] () Date:[id number] [address] [address]KA: 09/23/2018 Secondary NOT GIVENUNK [place] Insurance:SELF PAY [facility] Number: Effective Repository Date:2018-09-23
== END ==
PROVIDERS: Family Provider Student in an Organized Health Care Education/Training Program; PCP Student in an Organized Health Care Education/Training Program; Referring Provider Physician Assistant; Visit Provider Physician Assistant
DX: S62.001A Unspecified fracture of navicular [scaphoid] bone of right wrist, initial encounter for closed fracture (principal)
CPT/HCPCS: 73140

== ENCOUNTER → 2018-12-23 10:55 | Outpatient (CLI) | payer OTHER, SELFPAY ==
[2018-12-13 09:25] VITALS: BMI 23.1
--- NOTE | 2018-12-23 10:59 | MRI_ITS ---
STUDY: MRI LEFT WRIST WITHOUT CONTRAST REASON FOR EXAM: Female, 58 years old. Pain at the base of the thumb. TECHNIQUE: Standardized fat and water weighted pulse sequences were obtained in all 3 orthogonal planes. COMPARISON: X-ray December 13, 2018. FINDINGS: Normal visualized distal radius and ulna. There is a 0.8 x 0.6 cm fluid signal intensity collection adjacent to the distal radius compatible with ganglion, series 6 image 20/ There is a joint effusion of the distal radioulnar articulation . Normal triangular fibrocartilaginous complex (TFCC). Normal carpal bones. There is mild edema of the lunate, series 4 image 13/18. Normal radiocarpal, intercarpal and midcarpal articulations. Normal pisotriquetral articulation. Normal visualized interosseous scapholunate ligament. Normal visualized dorsal (extrinsic) ligaments. Normal visualized volar (extrinsic) ligaments. Normal extensor tendons. Normal flexor tendons. Normal carpal tunnel with a normal median nerve. There is degenerative arthrosis of the carpometacarpal articulation of the thumb with mild radial subluxation of the first metacarpus. There is adjacent 0.8 cm fluid signal intensity collection consistent with ganglion, series 4 image 8/18 . Normal second through fifth carpometacarpal articulations. Normal visualized metacarpal bones. There is no demonstrated soft tissue abnormality. MRI/Upper Ext Joint Only(Routine) IMPRESSION: Arthritic changes of basal joint of the thumb with small adjacent ganglion. Small ganglion at the radiocarpal articulation No fracture or avascular necrosis. No tear of the triangular fibrocartilage complex or scapholunate ligament. Edema with mild bruising of the lunate. Electronically Signed: Arsenio Marrero MD at 9:58 EST , Service support ,
== END ==
PROVIDERS: Family Provider Student in an Organized Health Care Education/Training Program; PCP Student in an Organized Health Care Education/Training Program; Referring Provider Physician Assistant; Visit Provider Physician Assistant
DX: S62.009A Unspecified fracture of navicular [scaphoid] bone of unspecified wrist, initial encounter for closed fracture (principal); M18.11 Unilateral primary osteoarthritis of first carpometacarpal joint, right hand
CPT/HCPCS: 73221

== ENCOUNTER 2022-06-02 09:16 | Emergency (ER) | payer OTHER, SELFPAY ==
[2022-06-02 09:17] VITALS: BP 99/57; PULSE 93; RESP 16; TEMP 36.9; O2SAT 100; BMI 22.6
[2022-06-02] MEDS: Morphine 4 MG/ML Syringe IV (09:48)
[2022-06-02] MEDS: Ondansetron 4 MG/2 ML Vial IV ×2 (09:48→14:44)
[2022-06-02] MEDS: 0.9% Normal Saline 1,000 ML 125 ML IV (09:48)
[2022-06-02 09:58] LABS: Bacteria 0 SEEN /hpf (None Seen); Mucous, Urine 0 SEEN /hpf (<or=2+); Red Blood Cells-Urine 0 SEEN /hpf (0-5); Squamous Epithelial Cells - UA 0 SEEN /hpf (5-10)
[2022-06-02 10:01] LABS: Absolute Lymphocyte Count 0.39 X10^3/uL (0.83-4.51); Absolute Neutrophil Count 7.3 X10^3/uL (2.0-7.7); Basophil# 0.03 X10^3/uL; Basophil% 0.4 % (0-1); Eosinophil# 0.03 X10^3/uL; Eosinophils% 0.4 % (0-5); Hematocrit 45.4 % (37-47); Hemoglobin 14.8 g/dL (12.0-15.0); Lymphocyte # 0.39 X10^3/ul (0.83-4.51); Lymphocyte % 4.8 % (19-41); Mean Corp Hgb Conc 32.6 g/dL (32-36); Mean Corpuscular Hgb 30.8 pg (27.0-32.0); Mean Corpuscular Volume 94.6 fL (81-99); Mean Platelet Vol. 10.6 fl (6.2-12.0); Monocyte# 0.39 X10^3/uL; Monocyte% 4.8 % (0-10); NRBC Flagged by Analyzer 0 % (0-5); Neutrophil # 7.29 X10^3/uL (2.7-7.7); Neutrophil % 89.2 % (47-70); POSITIVE DIFFERENTIAL YES; Platelet Count 220 K/mm3 (150-450); RBC Distribution Width CV 12.5 % (11.6-14.6); RBC Distribution Width SD 43.8 fl (35.1-43.9); White Blood Count 8.2 K/mm3 (4.4-11.0)
[2022-06-02 10:03] LABS: Differential Indicated SCAN CRITERIA MET
[2022-06-02 10:06] LABS: Color, Urine Yellow (Yellow); Glucose, Dipstick Normal (Normal); Leukocyte Esterase-Dipstick 100 /ul (Negative); Nitrite-Dipstick Negative (Negative); Occult Blood-Urine 150 /ul (Negative); Protein-Dipstick 30 mg/dl (Negative); Specific Gravity, Urine 1.015 (1.002-1.030); Urine Bilirubin Dipstick Negative (Negative); Urine Clarity Sl. Cloudy (Clear); Urine Urobilinogen Normal (Normal)
[2022-06-02 10:15] LABS: Ketone-Dipstick 150 mg/dl (Negative)
[2022-06-02 10:15] LABS: AST(SGOT) 15 U/L (15-37); Alanine Aminotransfer ALT/SGPT 17 U/L (13-56); Albumin, Serum 3.8 g/dL (3.2-5.0); Alkaline Phosphatase 81 U/L (45-117); Anion Gap 9 (5-15); BUN 16 mg/dL (7-18); BUN/Creat Ratio 22.6 RATIO (10-20); Calcium,Total 9.1 mg/dL (8.5-10.1); Chloride 102 mmol/L (98-107); Creatinine, Serum 0.71 mg/dL (0.55-1.02); EST Glomerular Filtration Rate 89 mL/min (>60); Est Glom Filt Rate - Afr Amer 108 mL/min (>60); Globulin 3.7 g/dL (2.2-4.2); Glucose 126 mg/dL (74-106); Potassium 3.9 mmol/L (3.5-5.1); Protein, Total 7.5 g/dL (6.4-8.2); Sodium Level 139 mmol/L (136-145)
[2022-06-02 10:18] LABS: White Blood Cells 10-25 SEEN /hpf (0-5)
--- NOTE | 2022-06-02 10:52 | EDS_ITS ---
HPI HPI - GI History of Present Illness Chief Complaint: Abd Pain Informant: patient Abdominal Pain/Flank Pain Onset: Days (2) Context: Gradual Onset Timing: Continuous Quality: Aching Location: RLQ Current Severity: Moderate Maximum Severity: Moderate Worsened by: Nothing Relieved by: Nothing Nausea/Vomiting/Emesis GI Symptom: Positive for Nausea and Vomiting Diarrhea/Melena/Hematochezia GI Symptom: Negative for Diarrhea, Melena or Hematochezia Associated Symptoms Associated Symptoms: Negative for Dysuria, Frequency, Hematuria or Urgency Narrative Narrative: Patient states he has had gradual onset of right-sided abdominal pain. Initially it was vague and somewhere in the right side, but now it started focusing in the right lower quadrant. This morning she has had nausea and vomiting. Poor appetite yesterday. No radiation of the pain. Nothing in her back with this. No fevers or chills or urinary symptoms. Never had this before. No history of prior abdominal surgeries. She did have urinary symptoms a week or so ago, she was out of town and did a virtual visit, received a prescription for 3 days of an antibiotic for what sounded like a urinary infection since she had dysuria, urgency, frequency, and on day 2 of the antibiotics all the symptoms resolved and have not returned. [facility] Medical History UTI (urinary tract infection) Home Medications dicyclomine 10 mg capsule 20 mg PO Q6H PRN PRN abdominal discomfort #20 CAPSULES 06/02/22 [Rx Last Taken Unknown] ondansetron 4 mg disintegrating tablet 8 mg PO Q8H PRN PRN Nausea #20 tabs 06/02/22 [Rx Last Taken Unknown] pantoprazole 40 mg tablet,delayed release 40 mg PO DAILY #30 tabs 06/02/22 [Rx Last Taken Unknown] Allergy/AdvReac Type Severity Reaction Status Date / Time codeine Allergy Severe Upset Verified 06/02/22 09:20 Stomach Social History Smoking Status: Never smoker alcohol intake: current alcohol intake frequency: holidays/special occasions only Alcohol type: beer and wine ROS ROS ED Constitutional Constitutional ED: Reports anorexia; Denies chills or fever(s) Eyes Eyes: Denies change in vision or diplopia ENT ENT ED: Denies rhinorrhea or sore throat Cardiovascular Cardiovascular: Denies chest pain or palpitations Respiratory/Chest Respiratory/Chest: Denies cough or dyspnea Gastrointestinal Gastrointestinal: Reports abdominal pain, nausea and vomiting; Denies diarrhea Genitourinary Genitourinary ED: Denies dysuria or hematuria Musculoskeletal Musculoskeletal: Denies back pain or neck pain Integumentary Denies abscess or rash Neurologic Neurologic: Denies headache(s), paresthesias or weakness Psychiatric Psychiatric: Denies anxiety or suicidal thoughts EXAM Physical Exam Const Vital Signs: 06/02/22 09:17 06/02/22 12:12 06/02/22 14:19 Temperature 98.5 F Temperature Source Temporal Pulse Rate 93 86 103 H Respiratory Rate 16 16 16 Blood Pressure 99/57 L 111/63 109/68 Blood Pressure Mean 71 79 81 Pulse Ox 100 98 94 Oxygen Delivery Method Room Air Room Air Room Air Positive well nourished and well developed General Appearance ED: well developed and NAD HEENT Reports moist mucous membranes normocephalic and atraumatic Eyes PERRL and EOMs intact bilaterally Neck full ROM and supple Resp normal respiratory effort and clear to auscultation bilaterally Cardio regular rate, regular rhythm and no murmurs GI non-distended GI Narrative: Tender throughout the right abdomen mildly, worst in her right lower quadrant McBurney's point. No guarding or rebound tenderness. Negative Rovsing. Auscultation: normoactive bowel sounds Palpation: soft Back/Spine no CVA tenderness General Back: other FROM Extremity normal to inspection General Extremety ED: Negative for edema, pulses abnormal or tenderness General Extremity: Negative for edema or pulses abnormal Neuro oriented x3, CN's II-XII intact bilaterally and no sensory deficits noted Sensorium / Orientation: awake and alert Motor Exam: strength 5/5 throughout Skin no rashes or lesions noted and no wounds MDM MDM MDM Narrative Medical decision making narrative: Labs are noted, she was sent for CT as well, IV contrasted CT shows no evidence of appendicitis actually a normal appendix was seen. There is nothing else acute seen on the CT. Her labs show an elevated bilirubin but the rest of her liver enzymes are normal. For this reason I think it would be reasonable to perform an ultrasound of the right upper quadrant which can give us more detailed information than the CT can offer. Ultrasound returned normal. This rules out acute cholecystitis and cholelithiasis, but does not tell us the answers. I think this is intestinal pain given all of this. Her urine was a little abnormal on sending it for culture but not treated since she had urinary symptoms when she had a urinary infection, and the CT shows no evidence of right collecting system/renal abnormality to suggest pyelonephritis, and she has no leukocytosis to suggest an acute bacterial infection. On reevaluation, after treatment earlier, her except for still little nauseated, her nausea was better after Zofran but later recurred, so she was given another dose of Zofran. My working diagnosis is that this is something intestinal, ulcers are possible, certainly could just be a viral gastritis with painful intestinal spasm. Will prescribe her a PPI and dicyclomine as well as Zofran and encouraged outpatient follow-up. She is comfortable with that plan. Lab Data Attestation: I reviewed the patient's lab results. Labs: Laboratory Results - last 24 hr 06/02/22 06/02/22 06/02/22 09:40 09:49 09:49 WBC 8.2 RBC 4.80 Hgb 14.8 Hct 45.4 MCV 94.6 MCH 30.8 MCHC 32.6 RDW Std Deviation 43.8 RDW Coeff of Laura 12.5 Plt Count 220 MPV 10.6 Immature Gran % (Auto) 0.400 Neut % (Auto) 89.2 H Lymph % (Auto) 4.8 L Beltrami % (Auto) 4.8 Eos % (Auto) 0.4 Baso % (Auto) 0.4 Absolute Neuts (auto) 7.3 Absolute Lymphs (auto) 0.39 L Nucleated RBC % 0 Sodium 139 Potassium 3.9 Chloride 102 Carbon Dioxide 28.0 Anion Gap 9 BUN 16 Creatinine 0.71 Estim Creat Clear Calc 77.90 Est GFR (MDRD) Af Amer 108 Est GFR (MDRD) Non-Af 89 BUN/Creatinine Ratio 22.6 H Glucose 126 H Calcium 9.1 Total Bilirubin 1.90 H AST 15 ALT 17 Alkaline Phosphatase 81 Total Protein 7.5 Albumin 3.8 Globulin 3.7 Albumin/Globulin Ratio 1.0 Urine Color Yellow Urine Clarity Sl. Cloudy Urine pH 6.0 Ur Specific Grundy 1.015 Urine Protein 30 H Urine Glucose (UA) Normal Urine Ketones 150 A* Urine Occult Blood 150 H Urine Nitrite Negative Urine Bilirubin Negative Urine Urobilinogen Normal Ur Leukocyte Esterase 100 H Urine RBC 0 SEEN Urine WBC 10-25 SEEN Ur Squamous Epith Cells 0 SEEN Urine Bacteria 0 SEEN Urine Mucus 0 SEEN Radiography Diagnostic Testing: Clinical Impression(s) from Imaging Studies Abdomen/Pelvis CT 06/02/22 10:58 IMPRESSION: Small hepatic cyst. Mild with increased markings at the lung bases suggestive of atelectasis. Electronically Signed: Jose Richards MD at 11:25 EDT , Gallbladder Ultrasound 06/02/22 11:55 IMPRESSION: Normal right upper quadrant ultrasound examination. Electronically Signed: Jose Richards MD at 13:00 EDT , Discharge Plan Triage Chief Complaint: Abd Pain ED Provider: Arsenio Ross Dx/Rx/DC Orders Clinical Impression: Right sided abdominal pain, Acute gastritis Instructions: ED PEPTIC ULCER vs GASTRITIS Prescriptions: New dicyclomine 10 MG capsule 20 mg PO Q6H PRN PRN (Reason: abdominal discomfort) Qty: 20 0RF ondansetron [ondansetron] 4 MG tablet 8 mg PO Q8H PRN PRN (Reason: Nausea) Qty: 20 0RF pantoprazole 40 mg tablet,delayed release (DR/EC) 40 mg PO DAILY Qty: 30 0RF Primary Care Provider: Luke Arzola Referrals: Luke Arzola, DO [Primary Care Provider] - 3-5 Days if not improving Activity Restrictions/Additional Instructions: Your urine was a little abnormal and is sent for a culture which should return in 2 to 3 days, if positive for infection you should receive a phone call and then a prescription for antibiotics. Discussed with your doctor when you follow-up to have her double check it. Your CT scan did not show any problems in your right side including your kidney/urinary plumbing, making a kidney infection much less likely as cause for your pain. Disposition Disposition: Home, Self Care
--- NOTE | 2022-06-02 10:58 | CT_ITS ---
STUDY: CT ABDOMEN AND PELVIS WITH CONTRAST REASON FOR EXAM: Female, 61 years old. RLQ pain RADIATION DOSAGE (If Supplied By Facility): CTDIvol = ( 9.36 ) mGy, DLP = ( 447.09 ) mGycm TECHNIQUE: Transaxial images were obtained from the dome of the diaphragm to the symphysis pubis without oral contrast. IV 100mL Isovue-300 was administered. Sagittal and coronal images were reconstructed. Individualized dose optimization techniques were used for this CT. COMPARISON: None. FINDINGS: Increased linear markings at the lung bases slightly more prominent on the left side suggestive of a linear atelectasis. The visualized portions of the heart are within normal limits. 5.9 mm cyst in the posterior aspect of the right lobe of the liver in the region of the dome of the liver. Normal gallbladder and extrahepatic biliary system. Normal spleen. Normal pancreas. Normal bilateral adrenal glands. Normal right kidney. Normal left kidney. Normal visualized stomach. Normal small intestine. Normal colon. The appendix is visualized and appears normal. There is scattered atherosclerotic calcification of the abdominal aorta, without a demonstrated aneurysm. Normal inferior vena cava. Normal retroperitoneum. Mild degree of diffuse bladder wall thickening. Normal abdominal wall. Normal osseous structures. CT/Abdomen/Pelvis W IV Cont ONLY IMPRESSION: Small hepatic cyst. Mild with increased markings at the lung bases suggestive of atelectasis. Electronically Signed: Jose Richards MD at 11:25 EDT ,
--- NOTE | 2022-06-02 11:55 | US_ITS ---
STUDY: ABDOMINAL ULTRASOUND - RIGHT UPPER QUADRANT REASON FOR VISIT: Female, 61 years old pain, n/v TECHNIQUE: Ultrasound evaluation of the right upper quadrant was performed with real-time and static templeton-scale imaging. TECHNICAL QUALITY: Adequate. COMPARISON: Comparison is made with prior CT scan of the abdomen and pelvis done earlier in the day. FINDINGS: Liver: The liver measures 14.6 cm. There is normal echogenicity of the liver. The bile ducts are within normal limits. There is hepatic color flow. The direction of portal flow is hepatopetal. There is no demonstrated mass lesion. Gallbladder: Normal distended gallbladder. The gallbladder wall measures 3 mm. There is a negative sonographic Baker''s sign. There is no pericholecystic fluid. There are no gallstones. Common Bile Duct (C.B.D.): The common bile duct measures 2 mm. Pancreas: Normal size of the head, body and tail of the pancreas. There is normal echogenicity of the pancreas. There is no demonstrated pancreatic mass or cyst. Right Kidney: Normal size of the right kidney. The right kidney measures 12.2 cm x 4.7 cm x 4.4 cm. Normal renal cortex. The right cortex measures 1.2 cm. There is no demonstrated renal mass or cyst. There is no right hydronephrosis. US/Gallbladder IMPRESSION: Normal right upper quadrant ultrasound examination. Electronically Signed: Jose Richards MD at 13:00 EDT ,
[2022-06-02 12:12] VITALS: BP 111/63; PULSE 86; RESP 16; O2SAT 98
[2022-06-02 14:19] VITALS: BP 109/68; PULSE 103; RESP 16; O2SAT 94
== END 2022-06-02 14:53 | disposition home or self-care (01) ==
PROVIDERS: Emergency Provider Emergency Medicine; PCP Student in an Organized Health Care Education/Training Program; Visit Provider Emergency Medicine
DX: R10.9 Unspecified abdominal pain (principal); K29.00 Acute gastritis without bleeding; Z87.440 Personal history of urinary (tract) infections
CPT/HCPCS: 74177; 76705; 80053; 81001; 85025; 96361; 96374; 96375; 96376; 99283; Q9967; A4216; J2405

== ENCOUNTER 2022-12-30 11:39 | Emergency (ER) | payer OTHER, SELFPAY ==
[2022-12-30 11:40] VITALS: BP 145/70; PULSE 96; RESP 18; TEMP 35.9; O2SAT 100; BMI 23.6
--- NOTE | 2022-12-30 11:46 | EKG12_ITS ---
Test Reason : Blood Pressure : / mmHG Vent. Rate : 082 BPM Atrial Rate : 082 BPM P-R Int : 138 ms QRS Dur : 084 ms QT Int : 386 ms P-R-T Axes : 075 076 063 degrees QTc Int : 450 ms Normal sinus rhythm Normal ECG Confirmed by SOFIE RIVERA MD ([id number]), deputy editor in chief MIRZA BECKMAN ([id number]) on 01/01/2023 11:35:32 AM Referred By: ELADIA Confirmed By:SOFIE RIVERA MD
[2022-12-30 12:07] LABS: Absolute Lymphocyte Count 1.78 X10^3/uL (0.83-4.51); Basophil# 0.03 X10^3/uL; Basophil% 0.5 % (0-1); Eosinophils% 1.6 % (0-5); Lymphocyte # 1.78 X10^3/ul (0.83-4.51); Mean Corp Hgb Conc 32.5 g/dL (32-36); Mean Corpuscular Hgb 29.7 pg (27.0-32.0); Mean Corpuscular Volume 91.5 fL (81-99); Monocyte# 0.44 X10^3/uL; Monocyte% 6.9 % (0-10); NRBC Flagged by Analyzer 0 % (0-5); Neutrophil # 3.98 X10^3/uL (2.7-7.7); Neutrophil % 62.7 % (47-70); Platelet Count 190 K/mm3 (150-450); RBC Distribution Width CV 12.8 % (11.6-14.6); RBC Distribution Width SD 43.2 fl (35.1-43.9); Red Blood Count 4.37 M/mm3 (4.2-5.4); White Blood Count 6.4 K/mm3 (4.4-11.0)
[2022-12-30 12:12] VITALS: O2SAT 99
--- NOTE | 2022-12-30 12:17 | EX.ED.DYSGE1 ---
HPI History of Present Illness Chief Complaint: General Illness Detail of Chief Complaint: Dizziness and nausea Informant: patient Narrative Narrative: Patient presents the emergency department complaint of sudden onset of feeling lightheaded. Patient states that she was standing in the kitchen after coming home from a short trip in the town. Patient suddenly felt lightheaded and had a wave of nausea. She started getting numbness and tingling around her lips and fingertips. She denied chest pain. Patient noticed some minimal discomfort in her right shoulder. Patient really is not sure what is wrong. Patient states that she travel to [place] over the weekend to visit family which is a 5-hour trip each way. She denies recent illness. She otherwise has no medical history. No cardiac history. No history of anxiety. Prior similar symptoms: No PFSH PFSH Medical History UTI (urinary tract infection) Home Medications dicyclomine 10 mg capsule 20 mg PO Q6H PRN PRN abdominal discomfort #20 CAPSULES 06/02/22 [Rx Last Taken Unknown] ondansetron 4 mg disintegrating tablet 8 mg PO Q8H PRN PRN Nausea #20 tabs 06/02/22 [Rx Last Taken Unknown] pantoprazole 40 mg tablet,delayed release 40 mg PO DAILY #30 tabs 06/02/22 [Rx Last Taken Unknown] Allergy/AdvReac Type Severity Reaction Status Date / Time codeine Allergy Severe Upset Verified 12/30/22 11:41 Stomach Social History Smoking Status: Never smoker alcohol intake: current alcohol intake frequency: holidays/special occasions only Alcohol type: beer and wine ROS ROS ED Review of Systems ROS Unobtainable: other Constitutional Constitutional ED: Reports lethargy; Denies chills, fever(s), sweats or weight loss Eyes Eyes: Denies blurry vision, change in vision or diplopia ENT ENT ED: Denies rhinorrhea or sore throat Cardiovascular Cardiovascular: Denies chest pain, orthopnea or racing heartbeat Respiratory/Chest Respiratory/Chest: Denies cough, dyspnea, dyspnea on exertion, orthopnea or sputum Gastrointestinal Gastrointestinal: Reports nausea; Denies abdominal pain, diarrhea or vomiting Genitourinary Genitourinary ED: Denies dysuria, hematuria or urinary frequency Musculoskeletal Musculoskeletal: Denies arthralgias, back pain, myalgias or neck pain Integumentary Denies abscess, Abrasions or rash Neurologic Neurologic: Reports paresthesias and other Details: Dizziness ; Denies headache(s) or weakness Psychiatric Psychiatric: Denies anxiety, depression or suicidal thoughts Endocrine Endocrinology: Denies polydipsia, polyphagia or polyuria Hematologic/Lymphatic Hematologic/Lymphatic: Denies easy bleeding, easy bruising or lymphadenopathy Allergic/Immunologic Allergic/Immunologic ED: Denies mouth swelling, tongue swelling or urticaria EXAM Physical Exam Const Vital Signs: 12/30/22 11:40 12/30/22 12:10 12/30/22 12:12 Temperature 96.7 F L Temperature Source Temporal Pulse Rate 96 Pulse Rate [Lying] Pulse Rate [Sitting (for 1 minute prior to obtaining)] Pulse Rate [Standing (for 1 minute prior to obtaining)] Respiratory Rate 18 Respiratory Effort Normal Non-Labored Blood Pressure 145/70 H Blood Pressure [Lying] Blood Pressure [Sitting (for 1 minute prior to obtaining)] Blood Pressure [Standing (for 1 minute prior to obtaining)] Blood Pressure Mean 95 Blood Pressure Mean [Lying] Blood Pressure Mean [Sitting (for 1 minute prior to obtaining)] Blood Pressure Mean [Standing (for 1 minute prior to obtaining)] Pulse Ox 100 99 Oxygen Delivery Method Room Air Room Air 12/30/22 12:47 12/30/22 13:15 12/30/22 14:02 Temperature Temperature Source Pulse Rate 65 65 Pulse Rate [Lying] 66 Pulse Rate [Sitting (for 1 minute prior to obtaining)] 66 Pulse Rate [Standing (for 1 minute prior to obtaining)] 70 Respiratory Rate 16 20 H Respiratory Effort Blood Pressure 106/61 108/64 Blood Pressure [Lying] 107/55 L Blood Pressure [Sitting (for 1 minute prior to obtaining)] 115/56 L Blood Pressure [Standing (for 1 minute prior to obtaining)] 108/69 Blood Pressure Mean 76 78 Blood Pressure Mean [Lying] 72 Blood Pressure Mean [Sitting (for 1 minute prior to obtaining)] 75 Blood Pressure Mean [Standing (for 1 minute prior to obtaining)] 82 Pulse Ox 97 98 Oxygen Delivery Method Room Air Positive well nourished and well developed General Appearance ED: well developed and NAD HEENT Reports TM's clear and moist mucous membranes normocephalic and atraumatic; Negative for trauma or tenderness Tympanic Membrane ED: Yes TM's clear Eyes PERRL and EOMs intact bilaterally General Eye ED: Negative for pale conjunctiva or scleral icterus Neck no lymphadenopathy, supple and no JVD General: Negative for tenderness Chest Wall inspection of chest normal and palpation of chest normal Chest: Negative for tenderness Resp normal respiratory effort and clear to auscultation bilaterally Effort and Inspection: Negative for respiratory distress or pain with movement Auscultation: Negative for rhonchi, wheezes or diminished lung sounds Cardio regular rate, regular rhythm, S1 normal heart sound, S2 normal heart sound and no murmurs Peripheral Pulses: pulses 2+ throughout GI normal to inspection, nondistended, normoactive bowel sounds, soft to palpation, non-tender, non-distended and no masses Back/Spine no CVA tenderness and no thoracic nor lumbar tenderness Extremity normal to inspection General Extremety ED: Negative for edema General Extremity: Negative for edema Neuro oriented x3, CN's II-XII intact bilaterally, no sensory deficits noted and gait normal Neuro Narrative: Finger-nose and heel correa testing within normal limits, negative Romberg, negative pronator drift, fundi benign. Hallpike maneuver performed and there was no evidence of nystagmus. Sensorium / Orientation: awake, alert, oriented to person, oriented to place and oriented to time Motor Exam: strength 5/5 throughout and strength abnormal Psych mental status grossly normal Skin no rashes or lesions noted and no wounds MDM MDM MDM Narrative Medical decision making narrative: Established on arrival. Patient placed on a teletypesetter monitor. In the differential suspect possibility of vasovagal episode versus vertigo versus cardiac dysrhythmia versus anxiety reaction versus acute coronary syndrome. 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 Troponin normal and delta troponin normal. D-dimer was obtained given her recent travel history and this was normal therefore I believe this excludes PE as cause of her symptoms. Patient given Zofran 4 mg IV and Ativan half a milligram IV. Orthostatic vitals obtained were normal. On repeat examination at 1430 she is feeling well and is not feeling dizzy or anxious or jittery. At this time etiology of her symptoms unclear. I do not feel she is having acute coronary syndrome. Lab Data Labs: Laboratory Results - last 24 hr 12/30/22 12/30/22 12/30/22 11:56 11:56 11:56 WBC 6.4 RBC 4.37 Hgb 13.0 Hct 40.0 MCV 91.5 MCH 29.7 MCHC 32.5 RDW Std Deviation 43.2 RDW Coeff of Laura 12.8 Plt Count 190 MPV 11.0 Immature Gran % (Auto) 0.300 Neut % (Auto) 62.7 Lymph % (Auto) 28.0 [place] % (Auto) 6.9 Eos % (Auto) 1.6 Baso % (Auto) 0.5 Absolute Neuts (auto) 4.0 Absolute Lymphs (auto) 1.78 Nucleated RBC % 0 D-Dimer Quant (PE/DVT) < 0.27 L Sodium 140 Potassium 3.6 Chloride 106 Carbon Dioxide 26.0 Anion Gap 8 BUN 17 Creatinine 0.72 Estim Creat Clear Calc 75.84 Est GFR (MDRD) Af Amer 106 Est GFR (MDRD) Non-Af 88 BUN/Creatinine Ratio 23.7 H Glucose 145 H Calcium 8.8 Troponin I High Sens 12/30/22 12/30/22 11:56 13:58 WBC RBC Hgb Hct MCV MCH MCHC RDW Std Deviation RDW Coeff of Laura Plt Count MPV Immature Gran % (Auto) Neut % (Auto) Lymph % (Auto) [place] % (Auto) Eos % (Auto) Baso % (Auto) Absolute Neuts (auto) Absolute Lymphs (auto) Nucleated RBC % D-Dimer Quant (PE/DVT) Sodium Potassium Chloride Carbon Dioxide Anion Gap BUN Creatinine Estim Creat Clear Calc Est GFR (MDRD) Af Amer Est GFR (MDRD) Non-Af BUN/Creatinine Ratio Glucose Calcium Troponin I High Sens 4 5 EKG Initial EKG: Attestation: I personally reviewed and interpreted this EKG as follows: Comments: Sinus rhythm with a rate of 65 bpm with old anterior lateral infarct Prior EKG tracings: available for review Prior: Unchanged Discharge Plan Triage Chief Complaint: General Illness ED Provider: Jalen Brink Dx/Rx/DC Orders Clinical Impression: Dizziness Instructions: ED Dizziness, Uncertain Cause Prescriptions: No Action dicyclomine 10 MG capsule 20 mg PO Q6H PRN PRN (Reason: abdominal discomfort) Qty: 20 0RF ondansetron [ondansetron] 4 MG tablet 8 mg PO Q8H PRN PRN (Reason: Nausea) Qty: 20 0RF pantoprazole 40 mg tablet,delayed release (DR/EC) 40 mg PO DAILY Qty: 30 0RF Primary Care Provider: Luke Arzola Referrals: Luke Arzola DO [Primary Care Provider] - 3-5 Days Disposition Disposition: Home, Self Care
[2022-12-30 12:21] LABS: Anion Gap 8 (5-15); BUN 17 mg/dL (7-18); BUN/Creat Ratio 23.7 RATIO (10-20); Calcium,Total 8.8 mg/dL (8.5-10.1); Chloride 106 mmol/L (98-107); Creatinine, Serum 0.72 mg/dL (0.55-1.02); EST Glomerular Filtration Rate 88 mL/min (>60); Est Glom Filt Rate - Afr Amer 106 mL/min (>60); Estimated Creatinine Clearance 75.84 ml/min; Glucose 145 mg/dL (74-106); Potassium 3.6 mmol/L (3.5-5.1); Sodium Level 140 mmol/L (136-145)
[2022-12-30] MEDS: Ondansetron 4 MG/2 ML Vial IV (12:36)
[2022-12-30] MEDS: LORazepam 2 MG/ML Syringe 0.5 MG IV (12:37)
[2022-12-30 12:47] VITALS: BP 107/55; BP 108/69; BP 115/56; PULSE 66; PULSE 70
[2022-12-30 13:03] LABS: Troponin-I HS 4 pg/mL (3.0-54.0)
[2022-12-30 13:15] VITALS: BP 106/61; PULSE 65; RESP 16; O2SAT 97
[2022-12-30 13:44] LABS: D-Dimer Quantitative (DVT/PE) < 0.27 FEU/ug/m (0.27-0.49)
[2022-12-30 14:02] VITALS: BP 108/64; PULSE 65; RESP 20; O2SAT 98
[2022-12-30 14:21] LABS: Troponin-I HS 5 pg/mL (3.0-54.0)
[2022-12-30 14:28] VITALS: BP 108/64; PULSE 74; RESP 17; O2SAT 100
== END 2022-12-30 14:40 | disposition home or self-care (01) ==
PROVIDERS: Emergency Provider Emergency Medicine; PCP Student in an Organized Health Care Education/Training Program; Visit Provider Emergency Medicine
DX: R42 Dizziness and giddiness (principal); R11.0 Nausea
CPT/HCPCS: 80048; 84484; 85025; 85379; 93005; 96374; 96375; 99285; A4216; J2405